=== PATIENT | female | born 1995 | race Caucasian/White ===

== ENCOUNTER 2022-09-06 13:26 | Emergency (ER) | payer SELFPAY ==
[~2022-09-06] VITALS: Ht 175.3 cm; Wt 63.5 kg
[2022-09-06 13:36] VITALS: BP 154/81
--- NOTE | 2022-09-06 13:40 | NUR ---
27 y/o female bib self, c/p cough, congestion, yates 8/10 pain at this time, chills, general weakness, body aches, sore throat, n&v, and loss of appetite since yesterday. a&ox4, ambulates with steady gait. denies any sick contacts. pt is approximately 8 weeks . denies dysuria, hematuria, diarhea, constipation. pmh: denies nka med: tylenol
[2022-09-06] MEDS ORDERED: ACETAMINOPHEN EXTRA STRENGTH 500 MG TAB PO ONE (14:20)
[2022-09-06] MEDS ORDERED: ONDANSETRON 4 MG ODT PO ONE (14:20)
[2022-09-06 14:26] LABS: APPEARANCE,URINE CLEAR (CLEAR); BILIRUBIN,URINE NEGATIVE (NEGATIVE); BLOOD, URINE NEGATIVE (NEGATIVE); COLOR,URINE YELLOW (YELLOW); LEUKOCYTE ESTERASE ,URINE NEGATIVE (NEGATIVE); NITRITE, URINE NEGATIVE (NEGATIVE); UGLUCOSE NEGATIVE (NEGATIVE)
[2022-09-06] MEDS ORDERED: NACL 0.9% 1,000 ML IV ONE (14:40)
[2022-09-06] MEDS ORDERED: ONDANSETRON 4 MG/2 ML VIAL IVP ONE (14:40)
[2022-09-06 15:00] LABS: BASOPHILS % (AUTO) 0.8 % (0.0-2.0); EOSINOPHILS # (AUTO) 0.1 K/uL (0-0.4); EOSINOPHILS % (AUTO) 0.9 % (0.0-4.0); HEMATOCRIT 37.9 % (36-48); HEMOGLOBIN 12.8 g/dL (12.0-16.0); LYMPHOCYTES # (AUTO) 0.8 K/uL (2.5-16.5); LYMPHOCYTES % (AUTO) 14.3 % (20.5-51.1); MEAN CORPUSCULAR HEMOGLOBIN 30 pg (27-31); MEAN CORPUSCULAR HGB CONC 34 g/dL (33-37); MEAN CORPUSCULAR VOLUME 89.4 fL (80-94); MONOCYTES # (AUTO) 0.6 K/uL (0.8-1.0); PLATELET COUNT (AUTO) 279 K/uL (140-450); RED BLOOD CELL COUNT(AUTO) 4.24 MIL/uL (4.20-5.40); RED CELL DISTRIBUTION WIDTH 13.7 % (11.6-13.7); WHITE BLOOD COUNT (AUTO) 5.4 K/uL (4.8-10.8)
--- NOTE | 2022-09-06 15:25 | NUR ---
Rosie conklin in [facility] - 09/06/22 at 1526 by [id number] Covid, flu, urine dropped off at lab.
[2022-09-06] MEDS ORDERED: DOXY1TCP PO (16:27)
[2022-09-06 17:14] VITALS: BP 126/68
--- NOTE | 2022-09-10 09:03 | NUR ---
LATE ENTRY -- CONFIRMED WITH RN NS INFUSION COMPLETED AT 1609 09/06/22
== END 2022-09-06 17:14 | disposition home or self-care (01) ==
LOC: MED 13:26
DX: O21.8 Other vomiting complicating pregnancy (principal); Z20.822 Contact with and (suspected) exposure to COVID-19; O26.891 Other specified pregnancy related conditions, first trimester; R53.1 Weakness; R07.9 Chest pain, unspecified; Z3A.10 10 weeks gestation of pregnancy
CPT/HCPCS: 36415; 76801; 81003; 81025; 84702; 85025; 86900; 86901; 87426; 87804; 96360; 99284; J7030; Q0092; Q0162; J2405

== ENCOUNTER 2022-09-20 01:45 | Emergency (ER) | payer MEDICAID ==
[~2022-09-20] VITALS: Ht 175.3 cm; Wt 65.8 kg
[~2022-09-20 01:45] MED LIST: DOXY1TCP PO
[2022-09-20 01:55] VITALS: BP 121/73
--- NOTE | 2022-09-20 01:58 | NUR ---
TO LOBBY A/W BED AMBULATORY
--- NOTE | 2022-09-20 02:30 | NUR ---
PT IS AND HAVING EPISODE OF VOMITING MOSTLY AT NIGHT FOR THE PAST 6 DAYS. SHE IS AWAKE AND ALERT AND ORIENTED. WAITING FOR
--- NOTE | 2022-09-20 03:00 | NUR ---
PT TAKEN TO BED 4
[2022-09-20] MEDS ORDERED: ONDANSETRON 4 MG ODT PO ONE (03:30)
[2022-09-20] MEDS ORDERED: ONDA4TAB12 PO (04:33)
[2022-09-20] MEDS ORDERED: DOXY25TA61 PO (04:35)
[2022-09-20] MEDS ORDERED: PYRI-218 PO (04:35)
[2022-09-20] MEDS ORDERED: METO-486 PO (04:35)
[2022-09-20 05:34] VITALS: BP 121/73
--- NOTE | 2022-09-20 05:37 | NUR ---
Patient discharged with v/s stable. Written and verbal after care instructions given and explained. Patient verbalized understanding. Ambulatory with steady gait. All questions addressed prior to discharge. Advised to follow up with PMD. PT LEFT WITH HER BELONIGINGS
== END 2022-09-20 05:37 | disposition home or self-care (01) ==
LOC: MED 01:45
DX: O21.8 Other vomiting complicating pregnancy (principal); Z79.899 Other long term (current) drug therapy; Z3A.13 13 weeks gestation of pregnancy
CPT/HCPCS: 81025; 99283; Q0162

== ENCOUNTER 2022-10-01 21:31 | Emergency (ER) | payer MEDICAID ==
[~2022-10-01] VITALS: Ht 175.3 cm; Wt 68.0 kg
[~2022-10-01 21:31] MED LIST changes: +DOXY25TA61 PO; +METO-486 PO; +ONDA4TAB12 PO; +PYRI-218 PO
[2022-10-01 21:50] VITALS: BP 108/62
--- NOTE | 2022-10-01 21:59 | NUR ---
TO LOBBY FOLLOWING TRIAGE
--- NOTE | 2022-10-02 00:10 | NUR ---
CALLED BY , NO ANSWER. LWBS
== END 2022-10-02 00:10 | disposition left against medical advice (07) ==
LOC: MED 21:31
DX: O26.892 Other specified pregnancy related conditions, second trimester (principal); Z3A.14 14 weeks gestation of pregnancy; Z53.21 Procedure and treatment not carried out due to patient leaving prior to being seen by health care provider

== ENCOUNTER 2022-10-29 16:16 | Emergency (ER) | payer MEDICAID ==
[~2022-10-29] VITALS: Ht 175.3 cm; Wt 72.1 kg
[2022-10-29 16:30] VITALS: BP 113/68
[2022-10-29] MEDS ORDERED: ACETAMINOPHEN EXTRA STRENGTH 500 MG TAB PO ONE (17:25)
[2022-10-29 18:17] LABS: BILIRUBIN,URINE NEGATIVE (NEGATIVE); BLOOD, URINE NEGATIVE (NEGATIVE); COLOR,URINE YELLOW (YELLOW); LEUKOCYTE ESTERASE ,URINE 1+ (NEGATIVE); NITRITE, URINE NEGATIVE (NEGATIVE); PH,URINE 6.5 (5.0-9.0); UGLUCOSE NEGATIVE (NEGATIVE)
[2022-10-29 18:24] LABS: APPEARANCE,URINE HAZY (CLEAR)
[2022-10-29 18:33] LABS: RBC,URINE NONE SEEN /HPF (0-5)
[2022-10-29] MEDS ORDERED: ACET-10509 PO (18:41)
[2022-10-29] MEDS ORDERED: CEPH-588 PO (18:41)
[2022-10-29 18:47] VITALS: BP 113/68
--- NOTE | 2022-10-29 18:47 | NUR ---
Patient discharged with v/s stable. Written and verbal after care instructions given and explained. Patient alert, oriented and verbalized understanding of instructions. Ambulatory with steady gait. All questions addressed prior to discharge. ID band removed. Patient advised to follow up with PMD. Rx of KEFLEX, TYLENOL (SENT) given. Patient educated on indication of medication including possible reaction and side effects. Opportunity to ask questions provided and answered.
== END 2022-10-29 18:47 | disposition home or self-care (01) ==
LOC: MED 16:16
DX: O26.891 Other specified pregnancy related conditions, first trimester (principal); Z20.822 Contact with and (suspected) exposure to COVID-19; J02.9 Acute pharyngitis, unspecified; Z3A.01 Less than 8 weeks gestation of pregnancy; Z79.899 Other long term (current) drug therapy
CPT/HCPCS: 81001; 81025; 87081; 87086; 99283

== ENCOUNTER 2023-03-31 07:36 | Inpatient (IN) | payer MEDICAID ==
[~2023-03-31] VITALS: Ht 175.3 cm; Wt 82.6 kg
[~2023-03-31 07:36] MED LIST changes: +ACET-10509 PO; +CEPH-588 PO
[2023-03-31] MEDS ORDERED: LACTATED RINGERS 1,000 ML IV SCH (08:15)
[2023-03-31] MEDS ORDERED: METHYLERGONOVINE 0.2 MG/ML AMP IM PRN ×2 (08:15→16:05)
[2023-03-31] MEDS ORDERED: LACTATED RINGERS 500 ML IV SCH (08:15)
[2023-03-31] MEDS ORDERED: CARBOPROST 250 MCG/ML AMP IM PRN (08:15)
[2023-03-31] MEDS ORDERED: AMPICILLIN 2,000 MG in NACL 0.9% MINI-BAG PLUS 100 ML IV SCH (08:37)
[2023-03-31 08:43] LABS: APPEARANCE,URINE CLEAR (CLEAR); BILIRUBIN,URINE NEGATIVE (NEGATIVE); BLOOD, URINE NEGATIVE (NEGATIVE); COLOR,URINE YELLOW (YELLOW); LEUKOCYTE ESTERASE ,URINE TRACE (NEGATIVE); NITRITE, URINE NEGATIVE (NEGATIVE); PH,URINE 6.5 (5.0-9.0); PROTEIN,URINE NEGATIVE (NEGATIVE); UGLUCOSE NEGATIVE (NEGATIVE); UROBILINOGEN,URINE 0.2 EU/dL (0.2 - 1)
[2023-03-31 08:44] LABS: BASOPHILS % (AUTO) 0.4 % (0.0-2.0); EOSINOPHILS # (AUTO) 0.2 K/uL (0-0.4); EOSINOPHILS % (AUTO) 2.2 % (0.0-4.0); HEMATOCRIT 26.7 % (36-48); HEMOGLOBIN 8.7 g/dL (12.0-16.0); LYMPHOCYTES % (AUTO) 24.4 % (20.5-51.1); MEAN CORPUSCULAR HEMOGLOBIN 26 pg (27-31); MEAN CORPUSCULAR HGB CONC 33 g/dL (33-37); MEAN CORPUSCULAR VOLUME 78.5 fL (80-94); MONOCYTES # (AUTO) 0.8 K/uL (0.8-1.0); MONOCYTES % (AUTO) 9.9 % (1.7-9.3); NEUTROPHILS # (AUTO) 5.2 K/uL (1.8-7.7); NEUTROPHILS % (AUTO) 63.1 % (42.2-75.2); PLATELET COUNT (AUTO) 218 K/uL (140-450); RED CELL DISTRIBUTION WIDTH 15.5 % (11.6-13.7); WHITE BLOOD COUNT (AUTO) 8.3 K/uL (4.8-10.8)
[2023-03-31 08:58] LABS: BACTERIA,URINE FEW /HPF (None Seen); RBC,URINE 0-5 /HPF (0-5); SQUAMOUS EPITHELIAL CELL,UR 0-3 (FEW) /LPF (0-3 (FEW)); WBC,URINE 0-5 /HPF (0-5)
[2023-03-31 09:04] LABS: INR 0.82 (0.8-1.2); PARTIAL THROMBOPLASTIN TIME 21.9 secs (22-35.6); PROTHROMBIN TIME 8.7 secs (10.8-13.4)
[2023-03-31 09:05] LABS: ALBUMIN 2.7 g/dL (3.4-5.0); ANION GAP 11.8 (8-16); CALCIUM 8.8 mg/dL (8.5-10.1); CREATININE 0.7 mg/dL (0.6-1.3); POTASSIUM 3.8 mmol/L (3.5-5.1); TOTAL BILIRUBIN 0.3 mg/dL (0.0-1.0)
[2023-03-31] MEDS ORDERED: AMPICILLIN 2,000 MG VIAL ONE (09:16)
[2023-03-31] MEDS ORDERED: OXYTOCIN 20 UNITS in LACTATED RINGERS 1,000 ML IV SCH (09:55)
[2023-03-31] MEDS ORDERED: OXYTOCIN 20 UNITS/LR PREMIX 1,000 ML IV ONE (10:10)
[2023-03-31] MEDS ORDERED: PNV91TAB8 PO (10:15)
[2023-03-31] MEDS ORDERED: ROPIVACAINE 0.2%/NS PREMIX 200 ML EPI ONE (11:02)
[2023-03-31] MEDS ORDERED: fentaNYL citrate 0.05 MG/ML VIAL ONE (11:02)
[2023-03-31] MEDS ORDERED: AMPICILLIN 1,000 MG in NACL 0.9% MINI-BAG PLUS 50 ML IV SCH (12:00)
[2023-03-31] MEDS ORDERED: AMPICILLIN 1,000 MG VIAL ONE (12:34)
[2023-03-31] MEDS ORDERED: TEMAZEPAM 15 MG CAP PO PRN (16:05)
[2023-03-31] MEDS ORDERED: METHYLERGONOVINE 0.2 MG TAB PO PRN (16:05)
[2023-03-31] MEDS ORDERED: oxyCODONE/APAP 5/325 MG 1 TAB TAB PO PRN ×2 (16:05)
[2023-03-31] MEDS ORDERED: OXYTOCIN 10 UNITS/ML VIAL IM PRN (16:05)
[2023-03-31] MEDS ORDERED: BENZOCAINE/MENTHOL 20%-0.5% 60 GM CAN TP PRN (16:05)
[2023-03-31] MEDS: IBUPROFEN 800 MG TAB PO PRN (20:07)
[2023-03-31] MEDS ORDERED: DOCUSATE SOD/SENNA 50/8.6 MG 1 TAB PO SCH (21:00)
[2023-04-01 05:25] LABS: HEMATOCRIT 28.4 % (36-48); HEMOGLOBIN 9.1 g/dL (12.0-16.0)
[2023-04-02] MEDS: IBUPROFEN 800 MG TAB PO PRN (02:23)
== END 2023-04-02 13:05 | disposition home or self-care (01) | DRG 560 ==
LOC: MFCC 07:36
PROVIDERS: ADMIT Obstetrics & Gynecology; ATTEND Obstetrics & Gynecology
PROC: 10E0XZZ Delivery of Products of Conception, External Approach (ICD-10-PCS; principal; 2023-03-31)
PROC: 3E033VJ Introduction of Other Hormone into Peripheral Vein, Percutaneous Approach (ICD-10-PCS; 2023-03-31)
DX: O48.0 Post-term pregnancy (principal); Z37.0 Single live birth; Z20.822 Contact with and (suspected) exposure to COVID-19; Z3A.40 40 weeks gestation of pregnancy
CPT/HCPCS: 36415; 51702; 59409; 80053; 81001; 85018; 85025; 85610; 85730; 86592; 86886; 86900; 86901; J0290; J2590; J2795; J3010